=== PATIENT | female | born 1955 | race Caucasian/White ===

== ENCOUNTER → 2017-06-19 | Day surgery (SDC) | payer BC ==
[2017-06-19] VITALS (7 sets, daily range): BP systolic 131–171; BP diastolic 72–99; PULSE 60–87; TEMP 36.9; O2SAT 95–99; Ht 160 cm; Wt 75.0 kg
[~2017-06-19] VITALS: Ht 160 cm; Wt 75.0 kg
[~2017-06-19] MED LIST: ASPI81TA28 PO; ATEN-173 PO; FLUO0.022; LIDOCAINE HCL 2% VISC SOLN 20 ML UDC ONE; LPT40 PO; LYSI500C2; MULT-610; OMEG120013 PO; PROPOFOL IV EMULSION 10 MG/ML 20 ML VIAL IV ONE
--- NOTE | 2017-06-19 08:06 | History and Physical ---
History & Physical Date & Time of Service: Jun 18, 2017 at 14:21 Chief Complaint: Severe aortic stenosis on transthoracic echocardiogram, possible bicuspid AV Primary Care Physician: Dr Georges History of Present Illness Source: patient Mary Marinelli is a 61 year old year old female who had recently been seen in annual outpatient cardiology follow up by the undersigned on 05/08/17 at [facility]. A resting echocardiogram performed in Nov, 2015. At that time a bicuspid aortic valve cannot be excluded. Moderate aortic valve stenosis was present as well as moderate left atrial chamber size enlargement. 2 recent follow-up she noted that she felt more short of breath. She believed that she was able to climb stairs without definite change in her activity tolerance, but she was taking naps more frequently. She went on to have a repeat transthoracic echocardiogram performed on 06/02/17 had revealed an interval progression in her aortic valve stenosis, with findings consistent with severe aortic valve stenosis. Transthoracic images were insufficient for excluding the presence of a congenitally bicuspid aortic valve. Mild mitral regurgitation was also noted. Further assessment with transesophageal echocardiogram is therefore been recommended by the undersigned for delineation of her aortic valvular anatomy and mitral valve anatomy prior to consideration of possible surgical intervention for aortic stenosis. Past Medical/Surgical History PAST MEDICAL HISTORY: Aortic valve stenosis, possible congenital bicuspid aortic valve Dyslipidemia PAST SURGICAL HISTORY: None Family History Mother: at age 71 due to complications of diabetes, suspected underlying heart disease, no history of heart surgery. Father: Alive, medical history unknown to the patient. Siblings: No known heart disease Social History : Spouse, Torsten concepcion Cigarette smoker, one pack per day Allergies Coded Allergies: No Known Allergies (Verified , 06/19/17) Home Medications Scheduled Aspirin (Aspirin Ec), 81 MG PO DAILY Atenolol (Tenormin), 25 MG PO DAILY Atorvastatin (Atorvastatin Calcium), 1 TAB PO DAILY [place]-3 Fatty Acids (Fish Oil), 1 TAB PO DAILY Miscellaneous Medications Fluocinolone Acetonide (Fluocinolone Acetonide) Lysine (Lysine) Multiple Vitamins W/ Minerals (Centrum Adults) Review of Systems See above for pertinent positives & negatives. A total of 10 systems reviewed and were otherwise negative. Physical Exam Vital Signs Last Vital Signs Documentation Date Time Temp Pulse Resp B/P (MAP) Pulse Ox O2 Delivery O2 Flow Rate FiO2 06/19/17 08:00 78 18 131/72 99 Nasal Cannula 4 06/19/17 07:14 36.9 General: no acute distress and stated age Eyes: conjunctiva are pink and non-injected, sclera clear Neck: normal jugular venous pulse, no hepatojugular reflux Chest: normal shape and normal respiratory effort Lungs: clear to auscultation and percussion Cardiac Exam: - regular heart sounds, 2/6 systolic murmur radiating to the neck , left greater than right neck bilaterally Abdomen: abdomen soft, non-tender, no abnormal masses and no hepatosplenomegaly Musculoskeletal: no gait disturbance, no weakness Extremities: no edema and no cyanosis Neuro: grossly normal exam Psych: appropriate affect and insight. Diagnostics EKG EKG performed 05/09/17 reviewed independently by the undersigned: Normal sinus rhythm with sinus arrhythmia at 72 bpm. Normal EKG. Impression Assessment and Plan IMPRESSION: 61-year-old female Recent subjective complaint of increasing exertional shortness of breath, echocardiographic findings of severe aortic stenosis, possibly bicuspid aortic valve, severe Deivert stenosis has progressed compared to November 2015 History of cigarette smoking PLAN: Plan proceed to transesophageal echocardiogram for further delineation of her aortic valve anatomy in the mitral valve anatomy.
--- NOTE | 2017-06-19 08:07 | History & Physical Bridge Note ---
H&P Re-Evaluation Bridge Note: I have examined the patient, reviewed the History & Physical and in the interval since the performance of the History & Physical I have noted the following changes of clinical significance: No changes noted.
--- NOTE | 2017-06-19 08:11 | Cardiology Procedure Brief Nt ---
Preliminary Cardiology Note Procedure Date Jun 19, 2017. Pre-Procedure Diagnosis Severe aortic valve stenosis, possible bicuspide AV Post-Procedure Diagnosis bicuspid AV, mild MR, Severe Procedure(s) Performed [facility] Specialist Jose Muñoz DO Supervisory Investigative Specialist(s) Chaya Rutherford, KERMIT Estimated Blood Loss none Preliminary Findings Severe bicuspid AV stenosis. Normal aortic root and proximal Ascending aorta diameter. Mild MR. Recommendations Continue current medications. Will proceed with cardiac cath , and CT surgery consultation in near future for consideration of S-AVR. Specimens none Anesthesia Propofol 300 mg, DR Gonzalez of anesthesia Complication(s) None Disposition recovery in cardiac analytical lab analyst recovery area, then DC to home
--- NOTE | 2017-06-19 08:13 | Discharge Instructions ---
Discharge Instructions Procedure Procedure Date: Jun 19, 2017. Reason for Visit: Severe aortic stenosis Discharge Discharge Date: Jun 19, 2017. Discharge Diagnosis: Severe bicuspid AV stenosis Last Recorded Wt (Kilograms): 75 Anesthesia Post Anesthesia Instructions: If you have had General Anesthesia or IV Sedation: * Do not drive today. * Resume driving when surgeon permits. * Do not make important decisions or sign legal documents today. * Call surgeon for: 1. Temperature elevations greater than 101 degrees F. 2. Uncontrollable pain. 3. Excessive bleeding. 4. Persistent nausea and vomiting. 5. Medication intolerance (nausea, vomiting or rash). * For nausea and vomiting use only clear liquids such as: tea, soda, bouillon until nausea subsides, then gradually increase diet as tolerated. * If you have any concerns or questions, call your surgeon's office. If physician is unavailable and it is an emergency, call 911 or go to the nearest emergency room. Instructions Activity Recommendations: limitations as noted below Recommended Home Diet: resume previous diet Allergies: Coded Allergies: No Known Allergies (Verified , 06/19/17) Provider Instructions ACTIVITY RECOMMENDATIONS: Resume activities as tolerated with no limitations unless specified. _x_ No lifting over _10_ pounds for 24 hours. _x_ Do not engage in vigorous exercise, sexual activity, or sports for 24 hours. _x_ Do not drive or operate any motorized equipment for 24 hours. _x_ You may return to work/school tomorrow. _x_ Nothing to eat or drink until gag reflex returns. _x_ No HOT or WARM liquids for _24_ hours. __ Avoid "scratchy" foods such as potato chips or pretzels for 24 hours following procedure. SPECIAL CARE: If you experience coughing up or vomiting of blood, contact ___Dr Muñoz ___ Follow Up Follow-up with: [facility] up with [facility] Recommendations: Call your doctor if: * Temperature above 101 degrees * Pain not relieved by pain medicine ordered * There is increased drainage or redness from any incision * You have any unanswered questions or concerns. Your Doctors Instructions noted above were prepared by provider Seth Muñoz. Patient Signature Section: Patient Instructions Signature Page Mary Marinelli Patient (or Guardian) Signature/Date: I have read and understand the instructions given to me by my caregivers. Caregiver/RN/Doctor Signature/Date: The above-named patient and/or guardian has received patient instructions on this date. + Original Patient Signature Page (only) stays with chart. Please make copy for patient.
--- NOTE | 2017-06-19 09:04 | Anesthesiology Progress Note ---
Anesthesia Post Op Note Date & Time Jun 19, 2017 at 09:04 Vital Signs Pain Intensity: 0 Vital Signs Past 12 Hours Date Time Temp Pulse Resp B/P (MAP) Pulse Ox O2 Delivery O2 Flow Rate FiO2 06/19/17 08:45 61 18 133/76 (95) 95 Room Air 06/19/17 08:30 61 18 131/76 (94) 95 Room Air 06/19/17 08:15 70 16 114/72 (86) 95 Room Air 06/19/17 08:05 71 16 116/72 (87) 95 Room Air 06/19/17 08:00 78 18 131/72 99 Nasal Cannula 4 06/19/17 07:55 87 18 131/87 99 Nasal Cannula 4 06/19/17 07:50 75 18 142/77 99 Nasal Cannula 4 06/19/17 07:45 83 18 171/99 99 Nasal Cannula 4 06/19/17 07:40 71 18 143/89 99 Nasal Cannula 4 06/19/17 07:14 36.9 60 16 164/89 98 Room Air Notes Mental Status: alert / awake / arousable, participated in evaluation Pt Amnestic to Procedure: Yes Nausea / Vomiting: adequately controlled Pain: adequately controlled Airway Patency, RR, SpO2: stable & adequate BP & HR: stable & adequate Hydration State: stable & adequate Anesthetic Complications: no major complications apparent
--- NOTE | 2017-06-20 13:26 | TEE ---
*NOTICE TO RECEIVING REPUBLICAN AGENCY This information is strictly Confidential and protected under [place] law. [place] law prohibits you from making any further disclosure of this information unless further disclosure is expressly permitted by the written consent of the person to whom it pertains or is authorized by law. A general authorization for the release of medical or other information is not sufficient for this purpose. Hospital accepts no responsibility if the information is made available to any other person, INCLUDING THE PATIENT. Interpretation Summary * Name: CANDY ANN Study Date: 06/19/2017 07:28 AM BP: 165/63 mmHg * Patient [facility]: [facility] HR: 78 * : 1955 (M/d/yyyy) Gender: Female Height: 63 in * Age: 61 yrs Ethnicity: CA Weight: 165 lb * Ordering Physician: Seth Muñoz DO, FACC * Performed By: Geena Reese RDCS * * Reason For Study: Aortic Stenosis * BSA: 1.8 m2 * Start time: 7:38 am * End time: 8:03 am * -- Conclusions -- * There is moderate to severe concentric left ventricular hypertrophy. * The LV Ejection Fraction = 55-60%. * The mitral valve anatomy is normal. * There is no mitral valve prolapse present. * There is mild mitral regurgitation. * The aortic valve is bicuspid. * There is fusion of the left and right coronary cusps. * No aortic regurgitation is present. * Severe aortic valve stenosis is is present based on 2D and 3D findings. * Doppler assessment was technically inadequate on the KAYY study to assess the aortic valve gradient or calculation of the aortic valve area. * The aortic root and proximal ascending aorta are normal sized. * There is no significant atheromatous disease at the level of the aortic root and proximal ascending thoracic aorta. Procedure Details * The transesophageal portion of this study was personally supervised by the undersigned interpreting physician. * KAYY Probe #1 utilized for procedure. * The study was performed in Cardiac Catheterization Lab. * Time out was conducted by the physician, nurse, and instructor adjunct surgical technician with positive identification of patient and procedure. * Informed consent for Transesophageal Echocardiogram was obtained prior to the procedure. * An intravenous line was placed. A topical anesthetic agent was used for oropharangeal anesthesia. A bite block was inserted. * Sedation performed by the anesthesia department. * The patient's vital signs, including blood pressure, heart rate, pulse oximetry and cardiac rhythm were monitored throughout the procedure . * The posterior oropharynx was anesthetized using a topical anesthetic spray. A bite guard was inserted. * A multifrequency, multiplane transesopheageal echocardiographic endoscope was inserted and manipulated in the standard fashion to achieve multiplane views. * The transesophageal probe was passed without difficulty. * The usual views were obtained; basal, mid-esophageal, transgastric and aortic views. * The patient tolerated the procedure well without evidence of orophangeal or esophageal trauma. * A 2D transesophageal echocardiogram with spectral and color flow Doppler was performed. * Contrast injection with agitated saline was performed. * A 2D transesophageal echocardiogram was performed. * A 2D transesophageal echocardiogram with color flow Doppler was performed. * A 2D transesophageal echocardiogram with Doppler and color flow Doppler was performed. Left Ventricle * The left ventricle is normal in size. * There is moderate to severe concentric left ventricular hypertrophy. * Left ventricular systolic function is normal. * Ejection Fraction = 55-60%. * The left ventricular wall motion is normal. Right Ventricle * The right ventricle is normal in size and function. Atria * The left atrial size is normal. * No thrombus is detected in the left atrial appendage. * No left atrial mass or thrombus visualized. * Right atrial size is normal. * The interatrial septum is intact with no evidence for an atrial septal defect. Mitral Valve * The mitral valve anatomy is normal. * There is no mitral valve prolapse present. * There is no mitral valve stenosis. * There is mild mitral regurgitation. Tricuspid Valve * The tricuspid valve is normal. * There is no tricuspid stenosis. * There is trace tricuspid regurgitation. * Doppler findings do not suggest pulmonary hypertension. Aortic Valve * The aortic valve is bicuspid. * There is fusion of the left and right coronary cusps. * Severe aortic valve stenososis is present based on 2D and 3D findings. Doppler assessment was technically inadequate on the KAYY study to assees the aortic valve gradient or calculation of the aortic valve area. * No aortic regurgitation is present. Pulmonic Valve * The pulmonic valve is not well seen, but is grossly normal. Great Vessels * There is no significant atheromatous disease at the level of the aortic root and proximal ascenthing thoracic aorta. * The aortic root and proximal ascending aorta are normal sized. Pericardium * There is no pericardial effusion. MMode 2D Measurements and Calculations asc Aorta Diam 2.8 cm Doppler Measurements and Calculations TR max karthik 213.6 cm/sec
== END | disposition home or self-care (01) ==
LOC: C.CATH 07:05
PROVIDERS: ATTEND Specialist
DX: I35.0 Nonrheumatic aortic (valve) stenosis (principal); Q23.1 Congenital insufficiency of aortic valve; I34.0 Nonrheumatic mitral (valve) insufficiency; E78.5 Hyperlipidemia, unspecified; F17.210 Nicotine dependence, cigarettes, uncomplicated; Z79.82 Long term (current) use of aspirin; Z79.899 Other long term (current) drug therapy

== ENCOUNTER → 2017-06-30 | Day surgery (SDC) | payer BC ==
--- NOTE | 2017-06-27 16:33 | History and Physical ---
History & Physical Date & Time of Service: Jun 27, 2017 at 16:20 Chief Complaint: exertional shortness of breath, severe bicuspid aortic valve stenosis Primary Care Physician: Kelly Georges M.D. History of Present Illness Mary Marinelli is a 61 year old year old female who had recently been seen in annual outpatient cardiology follow up by the undersigned on 05/08/17 at [facility]. At that time she described shortness of breath with activity and generalized increase in her fatigue level. She went on to have a repeat transthoracic echocardiogram performed at [facility] on 06/02/2017 that revealed an interval progression in her aortic valve stenosis with findings consistent a severe aortic valve stenosis. She went on to have a transesophageal echocardiogram performed at [facility] on 2016 which confirmed that the aortic valve was bicuspid in morphology. By 2D imaging severe aortic valve stenosis was present. Although the Doppler assessment was technically inadequate by transesophageal echocardiogram, both the Doppler assessment and calculated aortic valve area were consistent with severe aortic valve stenosis on the recent transthoracic study. Mild mitral regurgitation was noted on the transesophageal echocardiogram and the aortic root and proximal ascending aorta diameters were normal. The patient is tentatively scheduled to undergo coronary angiography on 2016 as part of a preoperative evaluation prior to cardiothoracic surgery consultation for aortic valve replacement. Past Medical/Surgical History Past Medical/Surgical History PAST MEDICAL HISTORY: Aortic valve stenosis, possible congenital bicuspid aortic valve Dyslipidemia PAST SURGICAL HISTORY: None Family History Mother: at age 71 due to complications of diabetes, suspected underlying heart disease, no history of heart surgery. Father: Alive, medical history unknown to the patient. Siblings: No known heart disease Social History : Spouse, Torsten Zamora houses Cigarette smoker, one pack per day Social History Smoking Status: Never Smoker Allergies Coded Allergies: No Known Allergies (Verified , 06/19/17) Home Medications Scheduled Aspirin (Aspirin Ec), 81 MG PO DAILY Atenolol (Tenormin), 25 MG PO DAILY Atorvastatin (Atorvastatin Calcium), 1 TAB PO DAILY [place]-3 Fatty Acids (Fish Oil), 1 TAB PO DAILY Miscellaneous Medications Fluocinolone Acetonide (Fluocinolone Acetonide) Lysine (Lysine) Multiple Vitamins W/ Minerals (Centrum Adults) Review of Systems Review of Systems See above for pertinent positives & negatives. A total of 10 systems reviewed and were otherwise negative. Physical Exam Vital Signs Vital signs performed during recovery from transesophageal echocardiogram on included: Heart rate 61 beats per minute, blood pressure 133/76 millimeters Hg, pulse oximetry 95% on room air. General: no acute distress and stated age Eyes: conjunctiva are pink and non-injected, sclera clear Neck: normal jugular venous pulse, no hepatojugular reflux Chest: normal shape and normal respiratory effort Lungs: clear to auscultation and percussion Cardiac Exam: - regular heart sounds, 2/6 systolic murmur radiating to the neck , left greater than right neck bilaterally Abdomen: abdomen soft, non-tender, no abnormal masses and no hepatosplenomegaly Musculoskeletal: no gait disturbance, no weakness Extremities: no edema and no cyanosis Neuro: grossly normal exam Psych: appropriate affect and insight. Diagnostics Laboratory Results Blood work performed at [facility] dated 06/23/2017: WBC 5.87 Hemoglobin 12.5 Platelet count 158 PT/INR 12.2 , INR 0.93, PTT 28 seconds Blood urea nitrogen 18 Creatinine 0.7 milligrams/deciliter, calculated GFR greater than 60 mL/minute per meter squared Sodium 142 Potassium 4.2 Chloride 100 CO2 26 Glucose 26 Calcium 9.7 Preprocedure chest x-ray performed 06/23/2017 at [facility]: Radiology summary, the lungs are clear. Pulmonary vasculature is within normal limits. Cardiomediastinal silhouette is unremarkable. EKG performed 05/08/2017: Normal sinus rhythm with sinus rhythm at 72 beats per minute, no significant ST changes Summary of transthoracic echocardiogram performed 06/02/2017: The LV wall thickness is moderately increased (concentric). The left ventricular wall motion is normal. Calculated LV ejection Fraction = 63% (biplane method of discs). The aortic valve is possibly bicuspid. The aortic valve is severely calcified. Severe aortic valve stenosis is present. The peak aortic valve velocity is 4.14.4 meters per second. The mean aortic valve gradient is 49 millimeters Hg. The calculated aortic valve area 0.7 centimeter squared. Mild mitral regurgitation is present. The estimated pulmonary artery systolic pressure is 35mm Hg. The aortic root and proximal ascending aorta are normal sized. Although there is a prominent posterior medial papillary muscle with proximal attachment to the mitral valve apparatus in the area of the left ventricular outflow tract, pulse wave Doppler interrogation reveals no intracavitary gradient within the left ventricle. Compared to the prior study dated 12/10/2015, there has been an interval progression in the severity of the aortic valve stenosis. Severe aortic stenosis is now present. Impression Assessment and Plan Impression: 61-year-old female Severe symptomatic bicuspid aortic valve stenosis Plan: Proceed with invasive coronary angiography to definitively exclude underlying coronary artery disease. Patient has upcoming cardiothoracic surgery consultation with Dr. Zuniga on .
[~2017-06-30] VITALS: Ht 160 cm; Wt 75.0 kg
[~2017-06-30] MED LIST changes: +FENTANYL CITRATE INJ 50 MCG/1 ML 2 ML VIAL ONE; +HEPARIN SOD (PORCINE) 1000 UNIT/ML 10 ML VIAL ONE; -LIDOCAINE HCL 2% VISC SOLN 20 ML UDC ONE; +MIDAZOLAM HCL 1 MG/ML 2ML VIAL ONE; +NITROGLYCERIN/D5W 100MCG/ML 20ML SYR ONE; +NiCARDipine HCL INJ 2.5 MG/ML 10 ML AMP ONE; -PROPOFOL IV EMULSION 10 MG/ML 20 ML VIAL IV ONE
[2017-06-30 07:14] VITALS: BP 164/81; PULSE 69; TEMP 36.6; O2SAT 98; Ht 160 cm; Wt 75.0 kg
--- NOTE | 2017-06-30 09:17 | Procedure Note ---
Pre-Mod Sedation Assessment General Date of Moderate Sedation: Jun 30, 2017. Vital Signs: Vital Signs Past 12 Hours Date Time Temp Pulse Resp B/P (MAP) Pulse Ox O2 Delivery O2 Flow Rate FiO2 06/30/17 09:08 68 16 149/92 (111) 98 Room Air 06/30/17 07:14 36.6 69 16 164/81 98 Room Air Review Cardiovascular: regular rate, rhythm, no edema, + systolic murmur Abdomen: normal bowel sounds, non tender, soft Lungs: chest non-tender, lungs clear Pre-Sedation Airway Assessment Short Thick Neck: No Hx of Sleep Apnea: No Smoking Status: Former Smoker Mallampati Classification: Class III ASA Classification: Class II Procedure Planning Contraindications-for Mod Sed: None Yes Notes The planned sedation has been discussed with the patient and consent obtained. I have identified the patient, determined the appropriateness of sedation and have assessed the patient immediately prior to the procedure. All medicine(s) and interventions are by my order.
--- NOTE | 2017-06-30 09:18 | Procedure Note ---
Post-Mod Sedation Assessment General Date of Moderate Sedation Jun 30, 2017. Vital Signs: Vital Signs Past 12 Hours Date Time Temp Pulse Resp B/P (MAP) Pulse Ox O2 Delivery O2 Flow Rate FiO2 06/30/17 09:08 68 16 149/92 (111) 98 Room Air 06/30/17 07:14 36.6 69 16 164/81 98 Room Air Review - Discharge Criteria Vital Signs Stable: Yes Alert/Oriented/Conversant: Yes Returned to Baseline Mental St: Yes Nausea Absent/Minimal: Yes Pain/Discomfort/Absent/Minimal: Yes Normal/Baseline Respirations: Yes Active Bleeding?: No Pt Received D/C Instructions: Yes Prescriptions Given: None Specific Proced. D/C Criteria Distal Pulses Present (Cardiac: Yes Groin site assessed-Card Cath: N/A Voided Prior To Discharge: N/A Discharged Patients Adult Escort/Transportation: Yes
--- NOTE | 2017-06-30 09:32 | Cardiac Catheterization ---
Procedure Note Procedure Date Jun 30, 2017. Pre-Procedure Diagnosis Valvular Disease AUC Score 7 Post-Procedure Diagnosis Normal Coronary Arteries Procedure(s) Performed Coronary Angiography Gun Number Dr. 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 Hemodynamics Rest Ao: 131/78/101 Final Ao: 158/78/101 LV: N/A Recommendations valve replacement Specimens None Radiation Exposure (mGy) 720 Contrast (mls) 100 Anesthesia Moderate sedation. Start 0835. End 0908. 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 Holding/Recovery ACC Data Cardiac Status Clinical evaluation leading to the procedure CAD Presntation: Stable angina Anginal Classification: CCS II Heart Failure: No Coronary Anatomy Dominant: Co-dominant (small minimally co-dominant RCA) Left Main (% Stenosis): Normal LAD (% Stenosis): Normal D1 (% Stenosis): Normal D2 (% Stenosis): Normal Circumflex (% Stenosis): Normal OM1 (% Stenosis): Normal OM2 (% Stenosis): Normal OM3 (% Stenosis): Normal L PL1 (% Stenosis): Normal L PDA (% Stenosis): Normal RCA (% Stenosis): Normal R PDA (% Stenosis): Normal Diagnostic Status: Elective Closure Device Percutaneous Entry Location: Radial Closure Device: Radial Band Recommendations: valve replacement Intraprocedure Events Significant Dissection: No Perforation: No
--- NOTE | 2017-06-30 09:36 | Discharge Instructions ---
Discharge Instructions Procedure Procedure Date: Jun 30, 2017. Reason for Visit: Severe Aortic Stenosis Dr Christopher To Do*. Discharge Discharge Date: Jun 30, 2017. Discharge Diagnosis: Status post cardiac catheterization. Normal coronary arteries Last Recorded Wt (Kilograms): 75 Anesthesia Post Anesthesia Instructions: If you have had General Anesthesia or IV Sedation: * Do not drive today. * Resume driving when surgeon permits. * Do not make important decisions or sign legal documents today. * Call surgeon for: 1. Temperature elevations greater than 101 degrees F. 2. Uncontrollable pain. 3. Excessive bleeding. 4. Persistent nausea and vomiting. 5. Medication intolerance (nausea, vomiting or rash). * For nausea and vomiting use only clear liquids such as: tea, soda, bouillon until nausea subsides, then gradually increase diet as tolerated. * If you have any concerns or questions, call your surgeon's office. If physician is unavailable and it is an emergency, call 911 or go to the nearest emergency room. Instructions Activity Recommendations: limitations as noted below Return to School/Work: with the following limitations Recommended Home Diet: resume previous diet Allergies: Coded Allergies: No Known Allergies (Verified , 06/19/17) Provider Instructions ACTIVITY RECOMMENDATIONS: Excess manipulation of the wrist should be avoided for the next 24-48 hours. * No lifting over 2 pounds (approximately a 1/2 gallon of milk) with the utilized arm for 24 hours. * No strenuous activity such as bowling or tennis for 3 days. * Keep the site of the procedure covered with a bandage for 24 hours. *You may shower the day after the procedure. Do not take a tub bath or submerge the puncture site in water for the next 3 days. *Do not operate any motorized equipment for 3 days. SPECIAL CARE INSTRUCTIONS: The site may be slightly bruised and sore following your procedure. Should any of the following occur, contact the DrHipolito who performed your procedure. 1. Redness/inflammation, swelling, chills, or fever, or colored drainage at procedure site within 3-7 days after your procedure. 2. Coldness, discoloration, ongoing numbness, severe pain, or swelling. Expect mild tingling of hand and tenderness at the puncture site for up to three days. If this persists beyond three days, or other symptoms develop, notify the Dr. who performed your procedure. BLEEDING: If the procedure site on your wrist begins to bleed, do not panic 1. Place 1 or 2 fingers firmly just slightly above the insertion site to stop the bleeding. You may be able to feel your pulse as you hold pressure. 2. Lift your finger after 5 minutes to see if the bleeding has stopped. 3. Once the bleeding has stopped, gently wipe the wrist area clean with a bandage. * If the bleeding from your wrist does not stop after 10 minutes, or if there is a large amount of bleeding or spurting, call 911 (do not drive yourself to the hospital). SKIN IRRITATION: * You may experience some redness and/or swelling in the area where radiation was administered. If any skin irritation occurs, please contact your family physician. FOLLOW UP VISIT: Keep any scheduled doctor appointments. Follow Up Follow-up with: Dr. Muñoz as scheduled. Dr. Zuniga (CT surgery) 07/14/2017 [facility] Recommendations: Call your doctor if: * Temperature above 101 degrees * Pain not relieved by pain medicine ordered * There is increased drainage or redness from any incision * You have any unanswered questions or concerns. Your Doctors Instructions noted above were prepared by provider Harlan Christopher. Patient Signature Section: Patient Instructions Signature Page Mary Marinelli Patient (or Guardian) Signature/Date: I have read and understand the instructions given to me by my caregivers. Caregiver/RN/Doctor Signature/Date: The above-named patient and/or guardian has received patient instructions on this date. + Original Patient Signature Page (only) stays with chart. Please make copy for patient.
[2017-06-30 11:30] VITALS: BP 125/68; PULSE 62; O2SAT 98
== END | disposition home or self-care (01) ==
LOC: C.CATH 07:02
PROVIDERS: ATTEND Internal Medicine Cardiovascular Disease
DX: I38 Endocarditis, valve unspecified (principal); R06.02 Shortness of breath; Z79.82 Long term (current) use of aspirin

== ENCOUNTER 2017-11-20 11:19 | Emergency (ER) | payer BC ==
[~2017-11-20] VITALS: Ht 160 cm; Wt 79.8 kg
[~2017-11-20 11:19] MED LIST changes: -FENTANYL CITRATE INJ 50 MCG/1 ML 2 ML VIAL ONE; -HEPARIN SOD (PORCINE) 1000 UNIT/ML 10 ML VIAL ONE; -MIDAZOLAM HCL 1 MG/ML 2ML VIAL ONE; -NITROGLYCERIN/D5W 100MCG/ML 20ML SYR ONE; -NiCARDipine HCL INJ 2.5 MG/ML 10 ML AMP ONE
[2017-11-20 11:25] VITALS: TEMP 37.4; Ht 160 cm; Wt 79.8 kg
[2017-11-20] MEDS ORDERED: AMPICILLIN/SULBACTAM SOD INJ 3,000 MG in SODIUM CHLORIDE 0.9% 100ML 100 ML IV ONE (12:15)
[2017-11-20] MEDS ORDERED: OPTIRAY 320 IV PRN (12:15)
[2017-11-20] MEDS ORDERED: ZINC1TAB PO (12:29)
[2017-11-20] MEDS ORDERED: ASCO-63 PO (12:29)
[2017-11-20] MEDS ORDERED: METO50TA16 PO (12:29)
[2017-11-20] MEDS ORDERED: FERR1TAB23 PO (12:29)
[2017-11-20] MEDS ORDERED: FOLI800T PO (12:29)
[2017-11-20] MEDS ORDERED: VANCOMYCIN IV 1,750 MG in SODIUM CHLORIDE 0.9% 500ML 500 ML IV ONE (12:30)
[2017-11-20 12:33] LABS: BASO % 0.1 %; BASO ABS # 0.01 K/uL (0-0.2); EOS % 0.5 %; EOS ABS # 0.04 K/uL (0-0.5); HEMATOCRIT 43.6 % (37-47); HEMOGLOBIN 15.3 g/dL (12.0-16.0); IG# 0.02 K/uL (0.00-0.02); LYMPH % 20.4 %; LYMPH ABS # 1.74 K/uL (1.2-3.4); MEAN CELL VOLUME 86.2 fL (80-100); MEAN CORPUSCULAR HEMOGLOBIN 30.2 pg (25-34); MEAN CORPUSCULAR HGB CONC 35.1 g/dl (32-36); MONO % 9.3 %; MONO ABS # 0.79 K/uL (0.11-0.59); NEUT % 69.5 %; NEUT ABS # 5.93 K/uL (1.4-6.5); PLATELET COUNT 141 K/uL (130-400); RED CELL DISTRIBUTION WIDTH CV 14.2 % (11.5-14.5); RED CELL DISTRIBUTION WIDTH SD 44.3 fL (36.4-46.3); WHITE BLOOD COUNT 8.53 K/uL (4.8-10.8)
--- NOTE | 2017-11-20 12:42 | DIAGNOSTIC IMAGING REPORT ---
CHEST ONE VIEW PORTABLE HISTORY: 62 years-old Female CHEST PAIN acute atypical chest pain with jaw swelling COMPARISON: None available TECHNIQUE: Portable AP view of the chest FINDINGS: Cardiac silhouette is within normal limits. Prior median sternotomy with prosthetic aortic valve. There is no pneumothorax, pleural effusion, focal airspace consolidation or overt pulmonary edema. The bones of the chest appear grossly intact. Degenerative changes of the shoulders and spine. IMPRESSION: No acute process. The above report was generated using voice recognition software. It may contain grammatical, syntax or spelling errors. Electronically signed by: Jerman Avendaño M.D. 11/20/2017 12:41 PM Dictated Date/Time: 11/20/2017 12:40 PM
[2017-11-20 12:50] LABS: CREATININE 0.73 mg/dl (0.60-1.20); POTASSIUM 4.1 mmol/L (3.5-5.1)
[2017-11-20 12:52] LABS: TOTAL PROTEIN 8.9 gm/dl (6.4-8.2)
--- NOTE | 2017-11-20 13:17 | EMERGENCY ROOM VISIT NOTE ---
History Report prepared by Audelia: Kofi Kumar Under the Supervision of: Dr. Raffaele Washington M.D. First contact with patient: 11:42 Chief Complaint: INFECTION Stated Complaint: FEVER,SWOLLEN JAW, TENDERNESS,COLD SWEATS History of Present Illness The patient is a 62 year old female who presents to the Emergency Room with complaints of worsening dental pain and swelling beginning six days ago. She localizes her pain to her right lower jaw. She states that there is a lot of pain to her gums. The patient also complains of fatigue, and shortness of breath. She denies any fevers. She has been checking her temperature regularly. The patient is not on any blood thinners. She has a prior history of aortic valve replacement. (bovine valve). Source of History: patient Onset: Six days ago Position: teeth Quality: other (pain and swelling) Timing: worsening Associated Symptoms: + SOB, + fatigue, No fevers Review of Systems See HPI for pertinent positives & negatives. A total of 10 systems reviewed and were otherwise negative. Past Medical & Surgical Medical Problems: (1) Borderline diabetes Surgical Problems: (1) H/O aortic valve replacement Old medical records were reviewed. Nurse's notes were reviewed and I agree with. Family History No pertinent family history stated. Social History Smoking Status: Former Smoker Drug Use: none Housing Status: lives with family Current/Historical Medications Scheduled Ascorbic Acid (Vitamin C), 500 MG PO DAILY Aspirin (Aspirin Ec), 81 MG PO DAILY Atorvastatin (Lipitor), 40 MG PO DAILY Ferrous Sulfate (Iron), 325 MG PO DAILY Folic Acid (Folic Acid), 800 MG PO DAILY Metoprolol Tartrate (Lopressor) (Lopressor), 50 MG PO BID Zinc (Hm Zinc), 50 MG PO DAILY Allergies Coded Allergies: No Known Allergies (Verified , 11/20/17) Physical Exam Vital Signs Date Time Temp Pulse Resp B/P (MAP) Pulse Ox O2 Delivery O2 Flow Rate FiO2 11/20/17 13:42 96 19 162/93 96 Room Air 11/20/17 11:25 37.4 92 18 154/107 97 Room Air Physical Exam General: Non-ill appearing middle-aged female in no acute distress. HEENT: Normal cephalic atraumatic. Pupils are equal round and reactive to light. Extraocular movements are intact. Moderate swelling under the right jaw. Tenderness, but no fluctuance. Tender to the right lower molars. No drainable abscess felt. Floor of the mouth is soft without evidence of Flo's angina. Posterior oropharynx is wide open. Neck: Supple with a midline trachea. No meningeal signs or stiffness, no JVD or bruits. No Stridor. Chest: Clear to auscultation bilaterally. No wheezes or rhonchi. No increased work of breathing. Heart: regular rate and rhythm. Abdomen: Soft nontender, nondistended without rebound guarding or rigidity. Extremities: No cyanosis clubbing or edema. No calf tenderness or assymetry Spine/Back. Non tender to palpation. No CVA tenderness Skin: Good turgor without rashes. Neurologic exam: Cranial nerves two through 12 are intact. Motor and sensation are intact and symmetrical throughout. Medical Decision & Procedures ER Provider Diagnostic Interpretation: Radiology results as stated below per my review and radiologist interpretation: CHEST ONE VIEW PORTABLE FINDINGS: Cardiac silhouette is within normal limits. Prior median sternotomy with prosthetic aortic valve. There is no pneumothorax, pleural effusion, focal airspace consolidation or overt pulmonary edema. The bones of the chest appear grossly intact. Degenerative changes of the shoulders and spine. IMPRESSION: No acute process. The above report was generated using voice recognition software. It may contain grammatical, syntax or spelling errors. Electronically signed by: Jerman Avendaño M.D. 11/20/2017 12:41 PM SOFT TISSUE NECK WITH FINDINGS: Catering Associate topogram: Median sternotomy wires and prosthetic aortic valve. Subcentimeter nodule noted in the left thyroid gland. Submandibular and parotid glands normal. No pathologically enlarged lymph nodes. Mildly prominent right submandibular lymph nodes likely reactive. Subcutaneous infiltration and skin thickening along the right submandibular region with thickening of the platysma. Periapical lucency noted at the right mandibular first molar with overlying cortical erosion along the buccal aspect (series 3 image 120). Overlying inflammation and laminar fluid suggests phlegmonous change/developing odontogenic abscess. Several teeth are absent. Orbits normal. Limited intracranial evaluation within normal limits. Paranasal sinuses and mastoid air cells clear. Degenerative changes of the cervical spine. Median sternotomy wires noted. Lung apices clear. IMPRESSION: 1. Findings consistent with odontogenic infection centered at the right mandibular first molar with phlegmonous change/developing odontogenic abscess in significant superficial inflammatory change with reactive lymphadenopathy. Electronically signed by: Marc Knight M.D. 11/20/2017 1:56 PM Laboratory Results 11/20/17 12:18 Red Blood Count 5.06, Mean Corpuscular Volume 86.2, Mean Corpuscular Hemoglobin 30.2, Mean Corpuscular Hemoglobin Concent 35.1, Mean Platelet Volume 9.0, Neutrophils (%) (Auto) 69.5, Lymphocytes (%) (Auto) 20.4, Monocytes (%) (Auto) 9.3, Eosinophils (%) (Auto) 0.5, Basophils (%) (Auto) 0.1, Neutrophils # (Auto) 5.93, Lymphocytes # (Auto) 1.74, Monocytes # (Auto) 0.79, Eosinophils # (Auto) 0.04, Basophils # (Auto) 0.01 11/20/17 12:18 Test 11/20/17 12:18 White Blood Count 8.53 K/uL (4.8-10.8) Red Blood Count 5.06 M/uL (4.2-5.4) Hemoglobin 15.3 g/dL (12.0-16.0) Hematocrit 43.6 % (37-47) Mean Corpuscular Volume 86.2 fL (80-100) Mean Corpuscular Hemoglobin 30.2 pg (25-34) Mean Corpuscular Hemoglobin Concent 35.1 g/dl (32-36) Platelet Count 141 K/uL (130-400) Mean Platelet Volume 9.0 fL (7.4-10.4) Neutrophils (%) (Auto) 69.5 % Lymphocytes (%) (Auto) 20.4 % Monocytes (%) (Auto) 9.3 % Eosinophils (%) (Auto) 0.5 % Basophils (%) (Auto) 0.1 % Neutrophils # (Auto) 5.93 K/uL (1.4-6.5) Lymphocytes # (Auto) 1.74 K/uL (1.2-3.4) Monocytes # (Auto) 0.79 K/uL (0.11-0.59) Eosinophils # (Auto) 0.04 K/uL (0-0.5) Basophils # (Auto) 0.01 K/uL (0-0.2) RDW Standard Deviation 44.3 fL (36.4-46.3) RDW Coefficient of Variation 14.2 % (11.5-14.5) Immature Granulocyte % (Auto) 0.2 % Immature Granulocyte # (Auto) 0.02 K/uL (0.00-0.02) Anion Gap 9.0 mmol/L (3-11) Est Creatinine Clear Calc Drug Dose 80.9 ml/min Estimated GFR () 103.0 Estimated GFR (Non- 88.9 BUN/Creatinine Ratio 15.7 (10-20) Calcium Level 10.0 mg/dl (8.5-10.1) Total Bilirubin 1.9 mg/dl (0.2-1) Direct Bilirubin 0.4 mg/dl (0-0.2) Aspartate Amino Transf (AST/SGOT) 18 U/L (15-37) Alanine Aminotransferase (ALT/SGPT) 40 U/L (12-78) Alkaline Phosphatase 130 U/L (45-117) Total Protein 8.9 gm/dl (6.4-8.2) Albumin 4.0 gm/dl (3.4-5.0) Lipase 102 U/L (73-393) Laboratory studies as stated above per my review. Medications Administered Medications (Trade) Dose Ordered Sig/Akil Route Start Time Stop Time Status Last Admin Dose Admin Ampicillin Sodium/ Sulbactam Sodium 3000 mg/Sodium Chloride 108 ml @ 216 mls/hr NOW ONCE IV 11/20/17 12:15 11/20/17 12:44 DC 11/20/17 12:28 216 MLS/HR Vancomycin HCl 1750 mg/Sodium Chloride 535 ml @ 200 mls/hr NOW ONCE IV 11/20/17 12:30 11/20/17 15:10 11/20/17 13:08 200 MLS/HR ED Course 1143: Past medical records reviewed. The patient was evaluated in room A2, and a complete history and physical examination were performed. 1215: Ordered Ampicillin Sodium/Sulbactam Sodium/3000 mg/Sodium Chloride 108 ml @ 216 mls/hr IV 1230: Ordered Vancomycin HCl 1750 mg/Sodium Chloride 535 ml @ 200 mls/hr IV. 1450: Upon reevaluation, the patient is resting comfortably. I discussed the results and treatment plan with her. She verbalized agreement of the treatment plan. The patient was discharged. Medical Decision Differentials include, but are not limited to; abscess, Flo's angina, endocarditis, airway compromise and dental caries. This patient comes in as described above. She has swelling of her right lower jaw. She looks well otherwise. It is firm and nonfluctuant. The floor of her mouth is soft and she has no evidence to suggest Flo's angina. I am concerned however that she has a bioprosthetic heart valve she would be a risk for endocarditis. in light of this, she was treated aggressively with IV antibiotics. She was given Unasyn as well as IV vancomycin to cover both dental and endocarditis pathogens. Blood cultures were also obtained. She has no white count or significant fever at this point. She has no acute electrolyte or metabolic abnormalities. She had a CAT scan of her soft tissue of her neck. CAT scan does show more of a phlegmon possible early abscess. She is no evidence of any airway compromise. I did discuss case with Dr. Martínez. He said that he could see her in the office this afternoon if we sent her over there promptly before his staff left. He plans on taking her tooth out to drain the abscess and remove the source of her infection he will sent home on antibiotics. I think this is very reasonable and the patient is very happy with this plan. Because of time constraints, I could not give her the full 1.7 g of vancomycin IV were ordered by the pharmacist initially. She received at least 15 mg/kg IV which would be a normal preop, I discussed this with our pharmacist as well as Dr. Martínez and the patient they all agree. She was sent over to Dr. Martínez's office office we left the IV lock in place and told her to be n.p.o. Medication Reconcilliation Current Medication List: was personally reviewed by me Blood Pressure Screening Patient's blood pressure: Elevated blood pressure Blood pressure disposition: Referred to PCP Impression Primary Impression: Dental abscess Scribe Attestation The scribe's documentation has been prepared under my direction and personally reviewed by me in its entirety. I confirm that the note above accurately reflects all work, treatment, procedures, and medical decision making performed by me. Departure Information Dispostion Home / Self-Care Referrals Kelly Georges M.D. (PCP) Forms HOME CARE DOCUMENTATION FORM, IMPORTANT VISIT INFORMATION, WORK / SCHOOL INSTRUCTIONS Patient Instructions My [facility] Additional Instructions Rest. Do not eat or drink anything Go directly to see Dr. Martínez, he is expecting you and will likely pull your tooth. Return if: Worsening of symptoms, fever or chills, any new problems or concerns.
--- NOTE | 2017-11-20 13:57 | DIAGNOSTIC IMAGING REPORT ---
SOFT TISSUE NECK WITH CLINICAL HISTORY: 62 years-old Female presenting with eval for abscess, airway compromise. TECHNIQUE: Multidetector CT of the neck was performed 93 mL of Optiray 320. IV contrast: None. A dose lowering technique was used consistent with the principles of ALARA (as low as reasonably achievable). COMPARISON: None. CT DOSE (mGy.cm): The estimated cumulative dose is 480.57 mGycm. FINDINGS: Keeper Head topogram: Median sternotomy wires and prosthetic aortic valve. Subcentimeter nodule noted in the left thyroid gland. Submandibular and parotid glands normal. No pathologically enlarged lymph nodes. Mildly prominent right submandibular lymph nodes likely reactive. Subcutaneous infiltration and skin thickening along the right submandibular region with thickening of the platysma. Periapical lucency noted at the right mandibular first molar with overlying cortical erosion along the buccal aspect (series 3 image 120). Overlying inflammation and laminar fluid suggests phlegmonous change/developing odontogenic abscess. Several teeth are absent. Orbits normal. Limited intracranial evaluation within normal limits. Paranasal sinuses and mastoid air cells clear. Degenerative changes of the cervical spine. Median sternotomy wires noted. Lung apices clear. IMPRESSION: 1. Findings consistent with odontogenic infection centered at the right mandibular first molar with phlegmonous change/developing odontogenic abscess in significant superficial inflammatory change with reactive lymphadenopathy. Electronically signed by: Marc Knight M.D. 11/20/2017 1:56 PM Dictated Date/Time: 11/20/2017 1:42 PM
[2017-11-20 15:01] VITALS: BP 155/107; PULSE 102; O2SAT 97
== END 2017-11-20 15:00 | disposition home or self-care (01) ==
LOC: C.EDB 11:20 → C.EDA 15:00
DX: K04.7 Periapical abscess without sinus (principal); R03.0 Elevated blood-pressure reading, without diagnosis of hypertension; R06.02 Shortness of breath; R73.03 Prediabetes; Z87.891 Personal history of nicotine dependence; Z79.899 Other long term (current) drug therapy; Z79.82 Long term (current) use of aspirin